=== PATIENT | female | born 1940 | race Caucasian/White ===

== ENCOUNTER 2017-12-29 05:42 | Inpatient (IN) | payer OTHER ==
[2017-12-29] MEDS ORDERED: dexameTHASONE 10 MG/1 ML VIAL PRES.FREE (J1100) (05:43)
[2017-12-29] MEDS ORDERED: EPINEPHrine INJ 1 MG/ML 1ML AMP (05:43)
[2017-12-29] MEDS ORDERED: ROPIvacaine 0.5% 30 ML INJECTION (J2795 PER 1MG) (05:43)
[2017-12-29] MEDS: ACETAMINOPHEN 500 MG TAB PO (06:00)
[2017-12-29] MEDS: LR 1,000 ML IV ×3 (06:00→18:16)
[2017-12-29] MEDS ORDERED: MIDAZOLAM INJ 2 MG/2 ML VIAL (J2250) As Ordered ×4 (06:42→08:05)
[2017-12-29] MEDS ORDERED: fentaNYL 100 MCG/2 ML INJECTION (J3010) As Ordered (06:42)
[2017-12-29] MEDS ORDERED: ATENOLOL 25 MG TAB As Ordered (07:07)
[2017-12-29] MEDS: ATENOLOL 25 MG TAB PO (07:15)
[2017-12-29] MEDS: fentaNYL 100 MCG/2 ML INJECTION (J3010) IV (07:18)
[2017-12-29] MEDS: MIDAZOLAM INJ 2 MG/2 ML VIAL (J2250) IV (07:18)
[2017-12-29] MEDS ORDERED: ALBUTEROL SULFATE 2.5 MG/0.5 ML INH NEB SOLN INH (07:30)
[2017-12-29] MEDS ORDERED: NS 1,000 ML IV (07:30)
[2017-12-29] MEDS ORDERED: LR 1,000 ML IV (07:30)
[2017-12-29] MEDS ORDERED: PROPOFOL 200 MG/20 ML VIAL As Ordered ×3 (07:47)
[2017-12-29] MEDS: ceFAZolin 1GM INJ (J0690 PER 500MG) As Ordered (08:09)
[2017-12-29] MEDS: BUPIVACAINE HCL 0.25% 30 ML VIAL As Ordered (08:45)
[2017-12-29] MEDS: EPINEPHrine INJ 1 MG/ML 1ML AMP As Ordered (08:46)
[2017-12-29] MEDS: TRANEXAMIC ACID 100 MG/ML 10ML VIAL As Ordered (08:46)
[2017-12-29] MEDS: BUPIVACAINE LIPOSOME/PF 1.3% 20 ML VIAL (13.3MG/ML)(EXPAREL) As Ordered (08:46)
[2017-12-29] MEDS ORDERED: LISINOPRIL 20 MG TAB PO (09:00)
[2017-12-29] MEDS ORDERED: ASPIRIN 81 MG ENTERIC TAB PO (09:00)
[2017-12-29] MEDS ORDERED: hydroCHLOROthiazide 25 MG TAB PO (09:00)
[2017-12-29] MEDS ORDERED: ATENOLOL 25 MG TAB PO (09:00)
[2017-12-29] MEDS: hydroCHLOROthiazide 25 MG TAB PO (10:00)
[2017-12-29] MEDS: LISINOPRIL 10 MG TAB PO (10:00)
[2017-12-29] MEDS ORDERED: MORPHINE 1MG/ML IN 0.9% NACL 100ML IV BAG As Ordered (10:08)
[2017-12-29] MEDS: VERAPAMIL 40 MG TAB PO (10:15)
[2017-12-29] MEDS ORDERED: NALOXONE INJ 0.4 MG/1 ML VIAL (J2310) IV (10:30)
[2017-12-29] MEDS ORDERED: FLEET ENEMA PR (10:30)
[2017-12-29] MEDS ORDERED: ONDANSETRON 4MG/2ML VIAL (J2405) IV (10:30)
[2017-12-29] MEDS ORDERED: EPIDURAL/PCA KEYS XX (10:30)
[2017-12-29] MEDS ORDERED: ACETAMINOPHEN TAB 650MG DOSE (2X325MG) PO (10:30)
[2017-12-29] MEDS ORDERED: NORCO, ANEXSIA 5/325MG TABLET (HYDROcodone/ACETAMINOPHEN) PO (10:30)
[2017-12-29] MEDS ORDERED: NALBUPHINE HCL 10 MG/ML AMP (J2300) IV (10:30)
[2017-12-29] MEDS ORDERED: MORPHINE 1MG/ML IN 0.9% NACL 100ML IV BAG IV (10:30)
[2017-12-29] MEDS ORDERED: fentaNYL 100 MCG/2 ML INJECTION (J3010) IV (10:30)
[2017-12-29] MEDS ORDERED: diphenhydrAMINE INJ 50MG/ML VIAL (J1200) IV (10:30)
[2017-12-29] MEDS: ONDANSETRON 4MG/2ML VIAL (J2405) IV (14:07)
[2017-12-29] MEDS: WARFARIN SOD 5 MG TAB PO (17:00)
[2017-12-29] MEDS: PRAVASTATIN 20 MG TAB PO (18:16)
[2017-12-29] MEDS: OMEPRAZOLE 20 MG CAP PO (19:55)
[2017-12-30 06:27] LABS: HEMATOCRIT 37.2 % (36.0-47.0); HEMOGLOBIN 12.5 g/dl (12.0-15.5); MEAN CORPUSCULAR HEMOGLOBIN 29.6 pg (27.0-33.0); MEAN CORPUSCULAR HGB CONC 33.6 g/dl (32.0-36.5); MEAN CORPUSCULAR VOLUME 87.9 fl (80.0-96.0); PLATELET COUNT, AUTOMATED 238 10^3/uL (150-450); RED BLOOD COUNT 4.23 10^6/uL (4.00-5.40); RED CELL DISTRIBUTION WIDTH 13.3 % (11.5-14.5); WHITE BLOOD COUNT 17.9 10^3/uL (4.0-10.0)
[2017-12-30 06:38] LABS: INR 1.51; PROTHROMBIN TIME 18.6 SECONDS (12.4-14.5)
[2017-12-30 06:42] LABS: ANION GAP 10 MEQ/L (8-16); BLOOD UREA NITROGEN 16 MG/DL (7-18); CALCIUM LEVEL 8.8 MG/DL (8.8-10.2); CARBON DIOXIDE LEVEL 27 MEQ/L (21-32); CHLORIDE LEVEL 104 MEQ/L (98-107); GLOMERULAR FILTRATION RATE > 60.0 (>39); GLUCOSE, FASTING 107 MG/DL (70-100); POTASSIUM SERUM 3.6 MEQ/L (3.5-5.1); SODIUM LEVEL 141 MEQ/L (136-145)
[2017-12-30] MEDS ORDERED: PERCOCET 5MG/325MG TAB PO (07:00)
[2017-12-30] MEDS ORDERED: ONDANSETRON 4 MG TAB (S0181) PO (07:00)
[2017-12-30] MEDS: MOM 30ML SUSPENSION UDC PO (09:00)
[2017-12-30] MEDS: MIRALAX *UNIT DOSE* 17GM PACKET PO (09:00)
[2017-12-30] MEDS: SENOKOT S TAB PO (09:00)
[2017-12-30] MEDS: VERAPAMIL 40 MG TAB PO (09:54)
[2017-12-30] MEDS: ATENOLOL 25 MG TAB PO (09:55)
[2017-12-30] MEDS: PRAVASTATIN 20 MG TAB PO (09:56)
[2017-12-30] MEDS: hydroCHLOROthiazide 25 MG TAB PO (09:56)
[2017-12-30] MEDS: LISINOPRIL 20 MG TAB PO (09:57)
[2017-12-30] MEDS: OMEPRAZOLE 20 MG CAP PO (09:57)
[2017-12-30] MEDS: PERCOCET 5MG/325MG TAB PO (10:54)
[2017-12-30] MEDS ORDERED: WARFARIN SOD 5 MG TAB PO (17:00)
== END 2017-12-30 14:00 | disposition home health service (06) | DRG 470 ==
LOC: M SDC 05:42 → M MS5PR 13:20 → M SDC 07:01 → M MS5PR 07:02
PROC: 0SRC0JZ Replacement of Right Knee Joint with Synthetic Substitute, Open Approach (ICD-10-PCS; principal; 2017-12-29 07:30)
DX: M17.11 Unilateral primary osteoarthritis, right knee (principal); I10 Essential (primary) hypertension; E78.5 Hyperlipidemia, unspecified; Z79.899 Other long term (current) drug therapy; Z79.82 Long term (current) use of aspirin; Z96.641 Presence of right artificial hip joint

== ENCOUNTER → 2020-03-11 | Outpatient (CLI) | payer OTHER ==
[~2020-03-11] MED LIST: ASPI81CH33 PO; ASPI81TA26 PO; ATEN25TA PO; CALC-190 PO; COUM10TA PO; COUM2.5T17 PO; ECOT81TA5 PO; LISI20TA20 PO; OMEP1CAP73 PO; PERC5TAB12 PO; PRAV80TA2 PO; VERA120T4 PO; VERA120T9 PO
== END ==
LOC: M LABSMTC 08:01
PROVIDERS: ATTEND Anesthesiology
DX: Z01.818 Encounter for other preprocedural examination (principal); Z11.59 Encounter for screening for other viral diseases
CPT/HCPCS: C9803; U0003

== ENCOUNTER 2020-03-15 07:30 | Inpatient (IN) | payer MEDICARE ==
[~2020-03-15] VITALS: Ht 162.6 cm; Wt 98.0 kg
[~2020-03-15 07:30] MED LIST changes: -ECOT81TA5 PO
[2020-05-01] VITALS (7 sets, daily range): BP systolic 142–162; BP diastolic 71–74
[2020-05-01] MEDS ORDERED: ceFAZolin 2 GM/D5W 50 ML IV BAG (J0690 PER 500MG) As Ordered ONE (07:46)
[2020-05-01] MEDS ORDERED: ACETAMINOPHEN 500 MG TAB As Ordered ONE (07:47)
[2020-05-01] MEDS ORDERED: ceFAZolin 1GM VIAL (J0690 PER 500MG) As Ordered ONE (07:51)
[2020-05-01] MEDS ORDERED: LR 1,000 ML IV ONE (08:15)
[2020-05-01] MEDS ORDERED: ceFAZolin SOD 2 GM in IV 1 EA IV ONE (08:15)
[2020-05-01] MEDS ORDERED: ACETAMINOPHEN 500 MG TAB PO ONE (08:30)
[2020-05-01] MEDS ORDERED: MIDAZOLAM INJ 2MG/2ML VIAL (J2250 PER 1MG) As Ordered ONE (08:36)
[2020-05-01] MEDS ORDERED: ONDANSETRON 4MG/2ML VIAL As Ordered ONE (08:36)
[2020-05-01] MEDS ORDERED: propofoL 200 MG/20 ML VIAL As Ordered ONE ×2 (08:36→11:23)
[2020-05-01] MEDS ORDERED: LIDOCAINE 2% 100MG/5ML SDV (FOR ANES.) As Ordered ONE (08:36)
[2020-05-01] MEDS ORDERED: fentaNYL 100 MCG/2 ML INJECTION (J3010) As Ordered ONE (08:36)
[2020-05-01 10:54] LABS: INR 1.05
[2020-05-01] MEDS ORDERED: ePHEDrine SULFATE 25 MG/5 ML(5MG/ML) SYRINGE As Ordered ONE (11:22)
[2020-05-01] MEDS ORDERED: EPINEPHrine INJ 1 MG/ML 1ML AMP As Ordered ONE (12:14)
[2020-05-01] MEDS ORDERED: TRANEXAMIC ACID 100 MG/ML 10ML VIAL As Ordered ONE (12:14)
[2020-05-01] MEDS ORDERED: METOCLOPRAMIDE INJ 10MG/2ML VIAL (J2765 PER 1) IV PRN (13:00)
[2020-05-01] MEDS ORDERED: MEPERIDINE INJ 25 MG/ML VIAL (J2175) IV PRN (13:00)
[2020-05-01] MEDS ORDERED: LR 1,000 ML IV SCH ×2 (13:00→13:15)
[2020-05-01] MEDS ORDERED: ONDANSETRON 4MG/2ML VIAL IV PRN ×2 (13:00→13:15)
[2020-05-01] MEDS ORDERED: oxyCODONE 5MG TAB PO PRN (13:00)
[2020-05-01] MEDS ORDERED: MORPHINE 2 MG/ML 1ML VIAL (J2270) IV PRN (13:15)
[2020-05-01] MEDS ORDERED: ACETAMINOPHEN TAB 650MG DOSE (2X325MG) PO PRN (13:15)
[2020-05-01] MEDS ORDERED: PERCOCET 5MG/325MG TAB PO PRN ×2 (13:15)
[2020-05-01] MEDS: fentaNYL 100 MCG/2 ML INJECTION (J3010) IV PRN ×4 (13:49→14:05)
--- NOTE | 2020-05-01 15:54 | CR.PDOC ---
General Date of Consultation: May 01, 2020 Consultation Chief complaint: Who presented to the [facility] for an elective total L hip arthroplasty History of present illness: Patient is an 80 year old female with a PMHx of HTN, DLP, Hx of Vertigo, GERD who presented to the [facility] for an elective total Left hip arthroplasty. Patients primary care provide, Dr. Hanna has provided clearance. Patient required cardiac clearance, from Dr. Peterson, via EKG, ECHO and stress test. Patient is seen post-operatively; currently she denies any CP, SOB, palpitations, cough, abdominal pain, C/D or urinary discomfort. Patient reports she did experience some nausea and had a small vomiting episode 30 minutes prior. Patient reports her appetite is usually normal, reports some weight loss of 7 lbs. Past Medical History: HTN, DLP, Hx of Vertigo, GERD Past Surgical History: Total right hip replacement Total right knee replacement Hysterectomy Tonsillectomy Allergies: See below Medications: See below Family History: - Mother and father with heart disease - Strong family history of lung cancer in siblings Social History: - Denies the use of alcohol, tobacco or illicit drugs - Denies recent travel or sick contacts - Lives with - Occupation; use to work at [employer] Review of Systems: 10 point review of systems complete, all negative otherwise stated in HPI Physical exam: - Vitals: BP [143/71], HR [74], RR [17], Sat [93%RA], Temp [97.4F] - General: Lying in bed, No acute distress, Speaking in full sentences, AAOx3 - HEENT: NC, AT, PERRLA - CVS: RRR, +S1S2 - Lungs: Fair air entry bilaterally, No wheezing / rales / rhonchi - Abdomen: Soft, Non-distended, Non-tender - Extremities: No lower extremity edema, No calf tenderness - Neuro: No focal motor or sensory deficit - Skin: No visible rashes Labs: See below Assessment and Plan: Elective total left hip arthroplasty - POD#0 - Admitted to orthopedic service, received outpatient medical / cardiac clearance - Pain control, anticoagulation and physical therapy as per primary orthopedic team HTN - BP well controlled - c/w Verapamil with holding parameters DLP - c/w Pravastatin Hx of Vertigo - Currently asymptomatic GERD - Not on any medications DVT prophylaxis - As per primary orthopedic team Vital Signs/I&O Vital Signs Date Time Temp Pulse Resp B/P (MAP) Pulse Ox O2 Delivery O2 Flow Rate FiO2 05/01/20 15:00 97.4 74 17 143/71 (95) 93 Room Air Laboratory Data Labs 24H Laboratory Tests 2 05/01/20 10:07: Erythrocyte Sedimentation Rate 49H, Prothrombin Time 14.0, Prothromb Time International Ratio 1.05 Allergies Coded Allergies: No Known Allergies (Unverified , 04/28/20) Home Medications Scheduled Aspirin (Aspirin) 81 Mg Tab.chew, 81 MG PO DAILY, (Reported) Calcium Carbonate/Vitamin D3 (Calcium 1,000 + D3 Caplet) 1 Each Tablet, 1 TAB PO DAILY, (Reported) Pravastatin Sodium (Pravastatin Sodium) 80 Mg Tab, 80 MG PO DAILY, (Reported) Verapamil HCl (Verapamil HCl) 120 Mg Tab, 120 MG PO DAILY, (Reported) MILO BORREGO MD May 01, 2020 15:54
[2020-05-01 17:21] LABS: BLOOD UREA NITROGEN 27 MG/DL (7-18); CALCIUM LEVEL 9.1 MG/DL (8.8-10.2); CARBON DIOXIDE LEVEL 30 MEQ/L (21-32); CHLORIDE LEVEL 101 MEQ/L (98-107); CREATININE FOR GFR 0.87 MG/DL (0.55-1.30); GLOMERULAR FILTRATION RATE > 60.0 (>39); GLUCOSE, FASTING 140 MG/DL (70-100); POTASSIUM SERUM 3.2 MEQ/L (3.5-5.1); SODIUM LEVEL 139 MEQ/L (136-145)
[2020-05-01] MEDS: ceFAZolin SOD 2 GM in IV 1 EA IV SCH (18:51)
[2020-05-01 22:23] LABS: CALCIUM LEVEL 9.1 MG/DL (8.8-10.2); CREATININE FOR GFR 1.01 MG/DL (0.55-1.30); GLOMERULAR FILTRATION RATE 56.3 (>39); POTASSIUM SERUM 3.7 MEQ/L (3.5-5.1)
[2020-05-02] MEDS: ceFAZolin SOD 2 GM in IV 1 EA IV SCH (03:16)
[2020-05-02 04:10] LABS: HEMATOCRIT 33.4 % (36.0-47.0); HEMOGLOBIN 11.3 g/dl (12.0-15.5); MEAN CORPUSCULAR HEMOGLOBIN 30.3 pg (27.0-33.0); MEAN CORPUSCULAR HGB CONC 33.8 g/dl (32.0-36.5); MEAN CORPUSCULAR VOLUME 89.5 fl (80.0-96.0); PLATELET COUNT, AUTOMATED 241 10^3/uL (150-450); RED BLOOD COUNT 3.73 10^6/uL (4.00-5.40); WHITE BLOOD COUNT 18.8 10^3/uL (4.0-10.0)
[2020-05-02 04:23] LABS: BLOOD UREA NITROGEN 27 MG/DL (7-18); CALCIUM LEVEL 9.1 MG/DL (8.8-10.2); CARBON DIOXIDE LEVEL 31 MEQ/L (21-32); CHLORIDE LEVEL 100 MEQ/L (98-107); CREATININE FOR GFR 0.92 MG/DL (0.55-1.30); GLOMERULAR FILTRATION RATE > 60.0 (>39); GLUCOSE, FASTING 129 MG/DL (70-100); POTASSIUM SERUM 3.8 MEQ/L (3.5-5.1); SODIUM LEVEL 136 MEQ/L (136-145)
[2020-05-02 04:26] LABS: ALBUMIN 3.2 GM/DL (3.2-5.2); ALT/SGPT 19 U/L (12-78); BILIRUBIN,TOTAL 0.5 MG/DL (0.2-1.0); BLOOD UREA NITROGEN 27 MG/DL (7-18); CALCIUM LEVEL 9.1 MG/DL (8.8-10.2); CARBON DIOXIDE LEVEL 30 MEQ/L (21-32); CHLORIDE LEVEL 100 MEQ/L (98-107); CREATININE FOR GFR 0.89 MG/DL (0.55-1.30); GLOMERULAR FILTRATION RATE > 60.0 (>39); GLUCOSE, FASTING 129 MG/DL (70-100); MAGNESIUM LEVEL 2.1 MG/DL (1.8-2.4); POTASSIUM SERUM 3.8 MEQ/L (3.5-5.1); SODIUM LEVEL 138 MEQ/L (136-145); TOTAL PROTEIN 6.1 GM/DL (6.4-8.2)
[2020-05-02 06:00] VITALS: BP 142/73
[2020-05-02] MEDS ORDERED: ECOT81TA5 PO (06:30)
[2020-05-02] MEDS ORDERED: PERC5TAB12 PO (06:30)
[2020-05-02] MEDS ORDERED: MOM 30ML SUSPENSION UDC PO SCH (09:00)
[2020-05-02] MEDS ORDERED: VERAPAMIL 40 MG TAB PO SCH (09:00)
[2020-05-02] MEDS ORDERED: MIRALAX *UNIT DOSE* 17GM PACKET PO SCH (09:00)
[2020-05-02] MEDS ORDERED: ASPIRIN 81 MG CHEW TABLET PO SCH (09:00)
[2020-05-02] MEDS ORDERED: PRAVASTATIN 20 MG TAB PO SCH (09:00)
--- NOTE | 2020-05-24 16:20 | RO ---
DATE OF OPERATION: 05/01/2020 PREOPERATIVE DIAGNOSIS: Left hip degenerative arthritis. POSTOPERATIVE DIAGNOSIS: Left hip degenerative arthritis. PROCEDURE: Left total hip arthroplasty. SURGEON: Ro Chapman M.D. EPIC INTERFACE ANALYST: Elma Herrmann. ANESTHESIA: Spinal. COMPLICATIONS: None. SPECIMENS: Femoral head. ESTIMATED BLOOD LOSS: 200 mL. PROSTHESIS USED: Size 52 Gription cup with a neutral 36-mm polyethylene liner and a 1.5-mm neck with a 36-mm cobalt chrome head with a standard offset size #7 Norco stem. Prosthesis was made by [employer]. DESCRIPTION OF PROCEDURE: Antibiotics were given intravenously preoperatively. She was taken to the operating room where a spinal anesthetic was induced. She was placed in the lateral decubitus position. The [place] hip positioner was utilized, down leg well-padded especially the peroneal nerve. The left hip area was carefully prepped and draped in the usual sterile fashion. After an appropriate time out, a longitudinal incision was made for a direct anterolateral approach to the hip. Bovie electrocautery was used to coagulate the crossing vessels. We dissected down to the tensor fascia, which was then divided in line with the skin incision, then we split the gluteus medius at the anterior one-third and posterior two-thirds junction, dissected down through the gluteus minimus, and then carefully dissected deep into the anterior capsule and then distally along the greater trochanter, releasing the soft tissues as we externally rotated and eventually dislocated the hip anteriorly. Starter reamer was placed in the piriformis fossa, followed by the canal finding reamer, and then the lateralizing reamer, and then we reamed up to a size #7. Proximal femoral neck osteotomy was performed and then we began broaching up to a size 7. We then exposed the acetabulum. A labral excision was performed 360. Capsular releases were done as appropriate for retraction and exposure of the acetabulum. We then began reaming beginning at 47, advanced in 1-mm increments to 51. The 52 cup fit nicely. We used the extramedullary alignment jig to estimate our version, thus we called for the 52 cup. We copiously irrigated out before implantation and then implanted the 52 Gription cup, using the extramedullary alignment jig to estimate our version and abduction. The central whole eliminator was placed, followed by the polyethylene after copiously irrigating our cup once again. We then exposed the proximal femur, irrigated out the femoral canal thoroughly, placed the #7 broach and the 1.5 trial neck and head and 36-mm head, and then reduced the hip. She had excellent stability to flexion internal rotation and extension external rotation. There was minimal soft tissue telescoping. Thus, we felt that this was the appropriate sized prosthesis to use. We removed all of the trial components. We again, at this point, copiously irrigated out the femoral canal once again and then placed the real #7 stem implanting into the same position as the broach was previously placed. We dried the trunnion of the stem and then placed the 36 x 1.5 ball and then reduced the hip after irrigating once again. Again, she was very stable in flexion internal rotation and extension external rotation with minimal soft tissue telescoping. We then meticulously closed the gluteus medius and minimus back anatomically with interrupted #1 PDS sutures. We also closed the vastus lateralis distally. We copiously irrigated once again and then closed the tensor fascia with a combination of #1 PDS sutures and a running #1 Stratafix, irrigating again between layers after placing tranexamic acid into the deep and the superficial soft tissues. We closed the deep subdermal tissues with interrupted 2-0 PDS sutures and the skin was closed with torsten, covered by an Optifoam and a dry sterile bulky dressing. She was then turned supine and then transferred to the recovery room in stable condition. There were no intraoperative complications. LIZANDRO
--- NOTE | 2020-05-26 15:26 | REP ---
LEFT HIP SERIES CLINICAL: Status post left hip replacement. TECHNIQUE: AP and cross-table lateral views of the left hip. FINDINGS: Patient is status post satisfactory left hip replacement. Overlying postsurgical changes noted. IMPRESSION: Satisfactory left hip replacement. LIZANDRO
--- NOTE | 2020-05-30 11:35 | DSES ---
DATE OF ADMISSION: 05/01/2020. DATE OF DISCHARGE: 05/02/2020. ADMITTING DIAGNOSIS: Osteoarthritis left hip. OTHER DIAGNOSES: Hypertension, elevated lipids, vertigo, gastric reflux disease. DISCHARGE DIAGNOSES: Osteoarthritis left hip; status post left total hip arthroplasty. OPERATION PERFORMED: Left total hip arthroplasty. HISTORY: This is a 80-year-old female patient with progressively worsening left hip pain and stiffness. She failed to improve with conservative management. She was admitted for elective hip replacement on the left side. HOSPITAL COURSE: Patient was admitted on the day of surgery and she underwent a left total hip arthroplasty, which was uneventful. She did well in the postoperative period and hospital course without complications. On the day of discharge, she was doing well, weightbearing as tolerated on her left lower extremity. She will use HAMLET stockings for 30 days postop for DVT prophylaxis. She will also use aspirin 81 mg for 35 days postop for DVT prophylaxis. She will use oral pain medications for pain control and she will resume her preoperative medications and diet. She will follow-up in our office in 10 to 14 days for surgical follow-up. She was given instructions that include but are not limited to wound monitoring and activity limitations. Please refer to the medical record for further details. LIZANDRO
== END 2020-05-02 09:05 | disposition home or self-care (01) | DRG 470 ==
LOC: M OR 05-01 07:01 → M MS5PR 05-01 14:45
PROVIDERS: ADMIT Orthopaedic Surgery; ATTEND Orthopaedic Surgery
PROC: 0SRB0JZ Replacement of Left Hip Joint with Synthetic Substitute, Open Approach (ICD-10-PCS; principal; 2020-05-01 09:30)
DX: M16.12 Unilateral primary osteoarthritis, left hip (principal); I10 Essential (primary) hypertension; K21.9 Gastro-esophageal reflux disease without esophagitis; Z96.641 Presence of right artificial hip joint; Z96.651 Presence of right artificial knee joint; Z79.82 Long term (current) use of aspirin; Z79.899 Other long term (current) drug therapy

== ENCOUNTER → 2020-04-26 | Outpatient (CLI) | payer MEDICARE ==
[~2020-04-26] MED LIST changes: +ECOT81TA5 PO
== END ==
LOC: M LABSMTC 09:37
PROVIDERS: ATTEND Anesthesiology
DX: Z03.818 Encounter for observation for suspected exposure to other biological agents ruled out (principal); Z11.59 Encounter for screening for other viral diseases
CPT/HCPCS: C9803; U0003